=== PATIENT | female | born 1975 | race Two or more races ===

== ENCOUNTER 2019-07-14 12:24 | Emergency (ER) | payer OTHER ==
[~2019-07-14] VITALS: Ht 157.5 cm; Wt 54.4 kg
== END 2019-07-14 18:44 | disposition home or self-care (01) ==
LOC: ER 12:24
DX: Z77.21 Contact with and (suspected) exposure to potentially hazardous body fluids (principal)

== ENCOUNTER 2019-10-04 15:54 | Emergency (ER) | payer OTHER ==
[~2019-10-04] VITALS: Ht 157.5 cm; Wt 55.3 kg
[2019-10-12] MEDS ORDERED: KETO10TA2 PO (13:24)
[2019-10-12] MEDS ORDERED: NORFLEX100MG PO (13:25)
== END 2019-10-04 17:58 | disposition home or self-care (01) ==
LOC: ER 15:54
DX: M54.2 Cervicalgia (principal); M62.838 Other muscle spasm

== ENCOUNTER 2019-11-26 08:39 | Emergency (ER) | payer OTHER ==
[~2019-11-26] VITALS: Ht 157.5 cm; Wt 64.4 kg
[~2019-11-26 08:39] MED LIST: KETO10TA2 PO; NORFLEX100MG PO
== END 2019-11-26 13:38 | disposition home or self-care (01) ==
LOC: ER 08:39
DX: R06.02 Shortness of breath (principal); R42 Dizziness and giddiness; Z20.828 Contact with and (suspected) exposure to other viral communicable diseases

== ENCOUNTER 2019-12-20 15:16 | Outpatient (CLI) | payer OTHER | END 2019-12-20 15:20 | disposition home or self-care (01) | LOC: CERTIFICAD 15:16 | PROVIDERS: ATTEND Family Medicine | DX: Z11.1 Encounter for screening for respiratory tuberculosis (principal) ==

== ENCOUNTER → 2020-01-09 06:19 | Outpatient (CLI) | payer OTHER | END | disposition home or self-care (01) | LOC: LAB 06:19 | PROVIDERS: ATTEND Obstetrics & Gynecology | DX: E03.8 Other specified hypothyroidism (principal); Z00.00 Encounter for general adult medical examination without abnormal findings; E78.00 Pure hypercholesterolemia, unspecified; I10 Essential (primary) hypertension; Z11.4 Encounter for screening for human immunodeficiency virus [HIV]; E55.9 Vitamin D deficiency, unspecified; Z21 Asymptomatic human immunodeficiency virus [HIV] infection status; R79.89 Other specified abnormal findings of blood chemistry; N39.0 Urinary tract infection, site not specified ==

== ENCOUNTER 2020-01-18 11:14 | Outpatient (CLI) | payer OTHER | END 2020-01-18 11:19 | disposition home or self-care (01) | LOC: MAMO-SONO 11:14 | PROVIDERS: ATTEND Obstetrics & Gynecology | DX: Z12.31 Encounter for screening mammogram for malignant neoplasm of breast (principal); N64.59 Other signs and symptoms in breast; N64.89 Other specified disorders of breast; N63.10 Unspecified lump in the right breast, unspecified quadrant; N63.20 Unspecified lump in the left breast, unspecified quadrant; N94.0 Mittelschmerz; R10.2 Pelvic and perineal pain; N94.89 Other specified conditions associated with female genital organs and menstrual cycle ==

== ENCOUNTER 2020-01-19 13:39 | Outpatient (CLI) | payer OTHER | END 2020-01-19 13:58 | disposition home or self-care (01) | LOC: NUCLEAR 13:39 | PROVIDERS: ATTEND Internal Medicine | DX: R00.2 Palpitations (principal) ==

== ENCOUNTER 2020-03-18 03:14 | Emergency (ER) | payer OTHER ==
[~2020-03-18] VITALS: Ht 157.5 cm; Wt 55.3 kg
[2020-03-18] MEDS ORDERED: VISTARIL50 MG PO (04:21)
== END 2020-03-18 04:32 | disposition home or self-care (01) ==
LOC: ER 03:14
DX: R00.2 Palpitations (principal); F41.0 Panic disorder [episodic paroxysmal anxiety]

== ENCOUNTER 2020-12-06 07:19 | Outpatient (CLI) | payer OTHER ==
[~2020-12-06 07:19] MED LIST changes: +VISTARIL50 MG PO
== END 2020-12-06 18:00 | disposition home or self-care (01) ==
LOC: LAB 07:19
PROVIDERS: ATTEND Emergency Medicine Pediatric Emergency Medicine
DX: Z03.818 Encounter for observation for suspected exposure to other biological agents ruled out (principal)

== ENCOUNTER 2021-02-04 08:00 | Outpatient (CLI) | payer OTHER | END 2021-02-04 08:30 | disposition home or self-care (01) | LOC: PPH VACUNA 08:00 | PROVIDERS: ATTEND Emergency Medicine Pediatric Emergency Medicine | DX: Z23 Encounter for immunization (principal) ==

== ENCOUNTER → 2021-02-16 08:16 | Outpatient (CLI) | payer OTHER | END | disposition home or self-care (01) | LOC: LAB 08:16 | PROVIDERS: ATTEND Obstetrics & Gynecology | DX: E03.8 Other specified hypothyroidism (principal); Z00.00 Encounter for general adult medical examination without abnormal findings; I10 Essential (primary) hypertension; E78.00 Pure hypercholesterolemia, unspecified; Z11.4 Encounter for screening for human immunodeficiency virus [HIV]; E55.9 Vitamin D deficiency, unspecified; Z21 Asymptomatic human immunodeficiency virus [HIV] infection status; R79.89 Other specified abnormal findings of blood chemistry ==

== ENCOUNTER 2021-03-19 07:24 | Outpatient (CLI) | payer OTHER | END 2021-03-19 07:33 | disposition home or self-care (01) | LOC: MAMO-SONO 07:24 | PROVIDERS: ATTEND Obstetrics & Gynecology | DX: N60.02 Solitary cyst of left breast (principal); Z12.31 Encounter for screening mammogram for malignant neoplasm of breast; N64.89 Other specified disorders of breast; N94.0 Mittelschmerz; R10.2 Pelvic and perineal pain; N94.89 Other specified conditions associated with female genital organs and menstrual cycle ==

== ENCOUNTER → 2021-04-30 06:37 | Outpatient (CLI) | payer OTHER | END | disposition home or self-care (01) | LOC: LAB 06:37 | DX: Z20.822 Contact with and (suspected) exposure to COVID-19 (principal) ==

== ENCOUNTER 2022-01-17 09:45 | Inpatient (IN) | payer OTHER ==
[~2022-01-17] VITALS: Ht 157.5 cm; Wt 55.3 kg
[~2022-01-17 09:45] MED LIST changes: +TOBRADEX EYE DR10 ML OP
[2022-01-22] MEDS ORDERED: GABAPENTIN300 MG PO (06:42)
[2022-01-22] MEDS ORDERED: SIMETHICONE125 M1 PO (06:42)
[2022-01-22] MEDS ORDERED: IBUPROFEN800 MG PO (06:42)
== END 2022-01-23 11:43 | disposition home or self-care (01) | DRG 743 ==
LOC: O/R 01-20 05:56 → OB/GYN 01-20 05:56 → SURG 01-20 09:45 → OB/GYN 01-20 10:09 → SURG 01-20 13:30 → OB/GYN 01-22 11:33
PROVIDERS: ADMIT Obstetrics & Gynecology; ATTEND Obstetrics & Gynecology
PROC: 0UT70ZZ Resection of Bilateral Fallopian Tubes, Open Approach (ICD-10-PCS; 2022-01-20)
PROC: 0UT90ZZ Resection of Uterus, Open Approach (ICD-10-PCS; principal; 2022-01-20 13:30)
DX: D25.1 Intramural leiomyoma of uterus (principal); D25.2 Subserosal leiomyoma of uterus; Z20.822 Contact with and (suspected) exposure to COVID-19; N80.0 Endometriosis of uterus; N72 Inflammatory disease of cervix uteri

== ENCOUNTER 2022-03-04 14:30 | Outpatient (CLI) | payer OTHER ==
[~2022-03-04 14:30] MED LIST changes: +GABAPENTIN300 MG PO; +IBUPROFEN800 MG PO; +SIMETHICONE125 M1 PO
== END 2022-03-04 14:35 | disposition home or self-care (01) ==
LOC: PPH VACUNA 14:30
PROVIDERS: ATTEND Emergency Medicine Pediatric Emergency Medicine
DX: Z23 Encounter for immunization (principal)

== ENCOUNTER 2022-04-11 00:35 | Emergency (ER) | payer OTHER ==
[~2022-04-11] VITALS: Ht 157.5 cm; Wt 54.4 kg
[2022-04-11] MEDS ORDERED: ORASEP SPRAY30 ML MM (05:49)
[2022-04-11] MEDS ORDERED: PHENAGIL TABLE1 EACH PO (05:49)
[2022-04-11] MEDS ORDERED: ZYNCOF 20-400120 ML PO (05:49)
== END 2022-04-11 05:55 ==
LOC: ER 00:35
DX: J10.1 Influenza due to other identified influenza virus with other respiratory manifestations (principal); Z20.822 Contact with and (suspected) exposure to COVID-19

== ENCOUNTER 2022-05-09 08:09 | Emergency (ER) | payer OTHER ==
[~2022-05-09] VITALS: Ht 157.5 cm; Wt 54.4 kg
[~2022-05-09 08:09] MED LIST changes: +ORASEP SPRAY30 ML MM; +PHENAGIL TABLE1 EACH PO; +ZYNCOF 20-400120 ML PO
== END 2022-05-09 12:00 | disposition home or self-care (01) ==
LOC: ER 08:09
DX: R42 Dizziness and giddiness (principal)

== ENCOUNTER 2022-06-05 12:36 | Outpatient (CLI) | payer OTHER | END 2022-06-05 12:58 | disposition home or self-care (01) | LOC: RAD 12:36 | PROVIDERS: ATTEND Internal Medicine Pulmonary Disease | DX: J98.01 Acute bronchospasm (principal) ==

== ENCOUNTER → 2022-09-23 13:14 | Outpatient (CLI) | payer OTHER | END | disposition home or self-care (01) | LOC: LAB 13:14 | PROVIDERS: ATTEND Orthopaedic Surgery Hand Surgery | DX: A49.3 Mycoplasma infection, unspecified site (principal) ==

== ENCOUNTER 2023-01-19 10:00 | Outpatient (CLI) | payer OTHER | END 2023-01-19 10:15 | disposition home or self-care (01) | LOC: PPH VACUNA 10:00 | PROVIDERS: ATTEND Emergency Medicine Pediatric Emergency Medicine | DX: Z23 Encounter for immunization (principal) ==

== ENCOUNTER → 2023-03-26 06:14 | Outpatient (CLI) | payer OTHER ==
[2023-03-26 08:06] LABS: HEMATOCRIT 39.8 % (36.0-45.00); HEMOGLOBIN 13.7 g/dL (12.0-15.00); MEAN CELL VOLUME 93.4 fL (80.00-100.00); MEAN CORPUSCULAR HEMOGLOBIN 32.2 pg (27.00-32.0); MEAN CORPUSCULAR HGB CONC 34.4 g/dl (32.0-36.0); PLATELET COUNT 408 K/uL (150-450); RED BLOOD COUNT 4.26 M/uL (4.00-6.00); RED CELL DISTRIBUTION WIDTH 13.9 % (11.5-14.5)
[2023-03-26 08:27] LABS: URINE APPEARANCE Clear; URINE BILIRRUBIN Negative (NEGATIVE); URINE BLOOD Negative; URINE COLOR Yellow; URINE GLUCOSE Negative (NEGATIVE); URINE LEUKOCYTE Negative; URINE NITRATE Negative; URINE PROTEIN Negative (NEGATIVE); URINE UROBILINOGEN 0.2 E.U./dl
[2023-03-26 08:29] LABS: ALBUMIN 3.5 gm/dL (3.4-5.0); BILIRUBIN TOTAL 0.38 mg/dL (0.3-1.2); CALCIUM 8.7 mg/dL (8.5-10.1); CREATININE SERUM 0.72 mg/dL (0.55-1.02); GFR 87.59; GLOBULINA 3.5 G/DL (2.4-3.5); POTASSIUM 4.18 mEq/L (3.5-5.1); T4 FREE 0.85 NG/ML (0.76-1.46); TSH 1.95 uIU/mL (0.358-3.74)
[2023-03-26 08:32] LABS: URINE BACTERIA 812.6 uL (0.0-1933); URINE EPITHELIAL CELLS 52.1 uL (0.0-38.8); URINE RBC 7.1 uL (0.0-20.8); URINE WBC 19.7 uL (0.0-23.2)
== END | disposition home or self-care (01) ==
LOC: LAB 06:14
PROVIDERS: ATTEND Obstetrics & Gynecology
DX: N81.0 Urethrocele (principal); I10 Essential (primary) hypertension; E03.9 Hypothyroidism, unspecified; N39.0 Urinary tract infection, site not specified; Z11.4 Encounter for screening for human immunodeficiency virus [HIV]; Z12.11 Encounter for screening for malignant neoplasm of colon; E55.9 Vitamin D deficiency, unspecified; Z21 Asymptomatic human immunodeficiency virus [HIV] infection status; R79.9 Abnormal finding of blood chemistry, unspecified; R79.89 Other specified abnormal findings of blood chemistry; Z91.018 Allergy to other foods

== ENCOUNTER 2023-03-26 14:44 | Outpatient (CLI) | payer OTHER | END 2023-03-26 14:47 | disposition home or self-care (01) | LOC: MAMO-SONO 14:44 | PROVIDERS: ATTEND Obstetrics & Gynecology | DX: N63.0 Unspecified lump in unspecified breast (principal); N64.59 Other signs and symptoms in breast; N64.9 Disorder of breast, unspecified; Z12.31 Encounter for screening mammogram for malignant neoplasm of breast ==

== ENCOUNTER 2023-06-29 06:08 | Outpatient (CLI) | payer OTHER ==
[2023-06-29 07:45] LABS: HEMATOCRIT 37.7 % (36.0-45.00); HEMOGLOBIN 13.1 g/dL (12.0-15.00); MEAN CELL VOLUME 94.9 fL (80.00-100.00); MEAN CORPUSCULAR HEMOGLOBIN 32.9 pg (27.00-32.0); MEAN CORPUSCULAR HGB CONC 34.7 g/dl (32.0-36.0); PLATELET COUNT 355 K/uL (150-450); RED BLOOD COUNT 3.97 M/uL (4.00-6.00); RED CELL DISTRIBUTION WIDTH 13.5 % (11.5-14.5)
== END 2023-06-29 06:09 | disposition home or self-care (01) ==
LOC: LAB 06:08
PROVIDERS: ATTEND Surgery
DX: R19.4 Change in bowel habit (principal); R19.5 Other fecal abnormalities

== ENCOUNTER 2023-08-24 17:32 | Emergency (ER) | payer OTHER ==
[~2023-08-24] VITALS: Ht 157.5 cm; Wt 56.2 kg
[2023-08-24] MEDS ORDERED: ELVITEG/COB/EMTRI/TENOFO DISOP 1 UDTAB TABLET PO STA (17:38)
== END 2023-08-24 17:52 | disposition home or self-care (01) ==
LOC: ER 17:32
DX: S61.042A Puncture wound with foreign body of left thumb without damage to nail, initial encounter (principal); Y65.8 Other specified misadventures during surgical and medical care; Y93.F9 Activity, other caregiving; Y92.234 Operating room of hospital as the place of occurrence of the external cause

== ENCOUNTER 2023-12-29 15:27 | Outpatient (CLI) | payer OTHER | END 2023-12-29 23:00 | disposition home or self-care (01) | LOC: LAB 15:27 | PROVIDERS: ATTEND Preventive Medicine Occupational Medicine | DX: B19.10 Unspecified viral hepatitis B without hepatic coma (principal) ==

== ENCOUNTER 2024-03-28 13:30 | Outpatient (CLI) | payer OTHER | END 2024-03-28 13:40 | disposition home or self-care (01) | LOC: PPH VACUNA 13:30 | PROVIDERS: ATTEND Emergency Medicine Pediatric Emergency Medicine | DX: Z23 Encounter for immunization (principal) ==

== ENCOUNTER 2024-04-27 06:32 | Outpatient (CLI) | payer OTHER ==
[2024-04-27 07:42] LABS: HEMATOCRIT 39.1 % (36.0-45.00); HEMOGLOBIN 13.5 g/dL (12.0-15.00); MEAN CELL VOLUME 95.1 fL (80.00-100.00); MEAN CORPUSCULAR HEMOGLOBIN 32.9 pg (27.00-32.0); MEAN CORPUSCULAR HGB CONC 34.6 g/dl (32.0-36.0); PLATELET COUNT 419 K/uL (150-450); RED BLOOD COUNT 4.11 M/uL (4.00-6.00); RED CELL DISTRIBUTION WIDTH 13.4 % (11.5-14.5)
[2024-04-27 08:52] LABS: ALBUMIN 3.6 gm/dL (3.4-5.0); BILIRUBIN TOTAL 0.56 mg/dL (0.3-1.2); CALCIUM 8.9 mg/dL (8.5-10.1); CHOL HDL RATIO 3.9 (0-5.0); CREATININE SERUM 0.63 mg/dL (0.55-1.02); GFR 101.73; GLOBULINA 3.1 G/DL (2.4-3.5); POTASSIUM 4.09 mEq/L (3.5-5.1); TOTAL PROTEIN 6.7 gm/dL (6.4-8.2); TSH 1.68 uIU/mL (0.358-3.74)
[2024-04-27 09:48] LABS: CORTISOL 11.44 ug/dl; VITAMIN D3 25 HYDROXY 24.68 ng/ml (30-120)
[2024-04-28 06:04] LABS: FOLLICLE STIMULATING HORMONE 20.9 mIU/mL (.); LEUTEINIZING HORMONE 56.3 mIU/mL (.); PROGESTERONA 0.9 ng/mL (.); PROLACTIN 28.8 ng/mL (4.8-33.4)
== END 2024-04-27 06:33 | disposition home or self-care (01) ==
LOC: LAB 06:32
PROVIDERS: ATTEND Obstetrics & Gynecology
DX: E03.9 Hypothyroidism, unspecified (principal); I10 Essential (primary) hypertension; Z00.00 Encounter for general adult medical examination without abnormal findings; E78.00 Pure hypercholesterolemia, unspecified; N91.0 Primary amenorrhea; E55.9 Vitamin D deficiency, unspecified; Z21 Asymptomatic human immunodeficiency virus [HIV] infection status; R79.9 Abnormal finding of blood chemistry, unspecified; R79.89 Other specified abnormal findings of blood chemistry

== ENCOUNTER 2024-04-27 07:47 | Outpatient (CLI) | payer OTHER | END 2024-04-27 07:51 | disposition home or self-care (01) | LOC: MAMO-SONO 07:47 | PROVIDERS: ATTEND Obstetrics & Gynecology | DX: N63.0 Unspecified lump in unspecified breast (principal); N64.59 Other signs and symptoms in breast; N64.9 Disorder of breast, unspecified; N64.0 Fissure and fistula of nipple; R10.2 Pelvic and perineal pain; N94.89 Other specified conditions associated with female genital organs and menstrual cycle ==

== ENCOUNTER 2025-01-04 10:11 | Outpatient (CLI) | payer OTHER ==
[2025-01-04 11:40] LABS: COVID-19 AG POSITIVE (NEGATIVE)
== END 2025-01-04 10:32 | disposition home or self-care (01) ==
LOC: LAB 10:11
PROVIDERS: ATTEND Preventive Medicine Occupational Medicine
DX: J11.1 Influenza due to unidentified influenza virus with other respiratory manifestations (principal); Z20.828 Contact with and (suspected) exposure to other viral communicable diseases

== ENCOUNTER 2025-04-18 09:00 | Outpatient (CLI) | payer OTHER | END 2025-04-18 09:10 | disposition home or self-care (01) | LOC: PPH VACUNA 09:00 | PROVIDERS: ATTEND Emergency Medicine Pediatric Emergency Medicine | DX: Z23 Encounter for immunization (principal) ==

== ENCOUNTER 2025-04-21 06:39 | Outpatient (CLI) | payer OTHER ==
[2025-04-21 07:40] LABS: BASO % 0.9 % (0.1-1.2); EOS # 0.13 (0.04-0.54); EOS % 3.1 % (0.7-7.0); LYMPH # 1.27 (1.18-3.74); LYMPH % 30.1 % (19.3-53.1); MEAN PLATELET VOLUME 9.80 fl (9.4-12.4); MONO # 0.36 (0.24-0.82); MONO % 8.5 % (4.7-12.5); NEUT # 2.41 (1.56-6.13); NEUT % 57.2 % (34.0-71.1); RED CELL DISTRIBUTION WIDTH 12.3 % (11.6-14.4)
[2025-04-21 07:58] LABS: URINE APPEARANCE Clear; URINE BILIRRUBIN Negative (NEGATIVE); URINE BLOOD Negative; URINE COLOR Yellow; URINE GLUCOSE Negative (NEGATIVE); URINE KETONE Negative (NEGATIVE); URINE LEUKOCYTE Trace; URINE NITRATE Negative; URINE PROTEIN Negative (NEGATIVE); URINE UROBILINOGEN 0.2 E.U./dl
[2025-04-21 07:59] LABS: URINE EPITHELIAL CELLS 53.1 uL (0.0-38.8); URINE RBC 4.1 uL (0.0-20.8); URINE WBC 54.2 uL (0.0-23.2)
[2025-04-21 08:07] LABS: URINE BACTERIA > 9821.5 uL (0.0-1933); URINE CAST 0.00 uL (0.0-1.40)
[2025-04-21 08:35] LABS: ALT/SGPT 21.0 U/L (12-78); AST/SGOT 15.0 U/L (15-37); BILIRUBIN TOTAL 0.41 mg/dL (0.3-1.2); BUN CREA RATIO 15.0 (7.0-25.0); CHOL HDL RATIO 3.8 (0-5.0); CREATININE SERUM 0.68 mg/dL (0.55-1.02); GFR 92.74; GLOBULINA 3.4 G/DL (2.4-3.5); GLUCOSE FASTING 96.0 mg/dL (65-100); HDL 65.0 mg/dl (40-60); LDL 166.0 mg/dl (0-130); OSMOLALITY SERUM 282.0 MOSM/KG (275-295); T4 FREE 1.0 NG/ML (0.76-1.46); TSH 2.07 uIU/mL (0.358-3.74); VLDL 13.0 (0-39)
[2025-04-22 10:07] LABS: HSV I IGG TYPE SPECIFIC Reactive (Non Reactive)
== END 2025-04-21 06:46 | disposition home or self-care (01) ==
LOC: LAB 06:39
PROVIDERS: ATTEND Obstetrics & Gynecology
DX: Z11.3 Encounter for screening for infections with a predominantly sexual mode of transmission (principal); Z11.59 Encounter for screening for other viral diseases; N90.89 Other specified noninflammatory disorders of vulva and perineum; Z00.00 Encounter for general adult medical examination without abnormal findings; I10 Essential (primary) hypertension; E03.9 Hypothyroidism, unspecified; E78.00 Pure hypercholesterolemia, unspecified; N39.0 Urinary tract infection, site not specified; Z11.4 Encounter for screening for human immunodeficiency virus [HIV]; Z12.11 Encounter for screening for malignant neoplasm of colon; E55.9 Vitamin D deficiency, unspecified; Z21 Asymptomatic human immunodeficiency virus [HIV] infection status; R79.9 Abnormal finding of blood chemistry, unspecified; R79.89 Other specified abnormal findings of blood chemistry

== ENCOUNTER 2025-05-01 09:25 | Outpatient (CLI) | payer OTHER | END 2025-05-01 09:30 | disposition home or self-care (01) | LOC: MAMO-SONO 09:25 | PROVIDERS: ATTEND Obstetrics & Gynecology | DX: N64.59 Other signs and symptoms in breast (principal); N64.9 Disorder of breast, unspecified; N63 Unspecified lump in breast; N94.0 Mittelschmerz; R10.20 Pelvic and perineal pain unspecified side; N94.89 Other specified conditions associated with female genital organs and menstrual cycle ==